=== PATIENT | male | born 1950 | race Caucasian/White ===

== ENCOUNTER 2018-08-06 10:45 | Emergency (ER) | payer OTHER ==
[~2018-08-06] VITALS: Ht 182.9 cm; Wt 115.7 kg
[2018-08-06 12:19] VITALS: BP 131/62
[2018-08-06] MEDS ORDERED: LISINOPRIL10 M1 PO (12:26)
[2018-08-06] MEDS ORDERED: METFORMIN HCL500 M3 PO (12:26)
[2018-08-06] MEDS ORDERED: ATORVASTATIN CA10 M1 PO (12:27)
[2018-08-06] MEDS ORDERED: PIOGLITAZONE HC45 M1 PO (12:27)
--- NOTE | 2018-08-06 13:04 | ED AMS/SEIZURE/WEAK/DIZZY ---
History of Present Illness General Chief Complaint: General Adult Stated Complaint: GEN WEAKNESS,HANDS TINGLING Source: patient Exam Limitations: no limitations Vital Signs & Intake/Output Vital Signs & Intake/Output Vital Signs Date Time Temp Pulse Resp B/P B/P Pulse O2 O2 Flow FiO2 Mean Ox Delivery Rate 08/06 1224 99 Room Air 08/06 1219 98.9 78 18 131/62 98 Room Air 08/06 1101 98.4 67 20 120/64 97 Room Air Allergies Coded Allergies: No Known Allergies (08/06/18) Reconcile Medications Atorvastatin Calcium 10 MG TABLET 1 TAB PO DAILY CHOLESTEROL (Reported) Lisinopril 10 MG TABLET 1 TAB PO DAILY HEART (Reported) Metformin HCl 500 MG TABLET 1 TAB PO BID DIABETES (Reported) Pioglitazone HCl 45 MG TABLET 1 TAB PO DAILY DIABETES (Reported) Triage Note: PT C/O FEELING DIZZY, TINGLING IN B/L FINGERS, NOT CONSTANT, WEAKNESS. PT DENIES CP/SOB. STATES "I FEEL LIKE I'M GOING TO PASS OUT" STATES SX STARTED A FEW HOURS AGO. NEUROS INTACT IN TRIAGE Triage Nurses Notes Reviewed? yes HPI: Patient presents for evaluation of dizziness and tingling of the fingers of both hands. Patient describes the symptoms as mild with associated dizziness and weakness that began abruptly at about 8:30 in the morning. Patient states that it began while he was sitting at the computer. He denies any associated vertigo. Likewise denies chest pain, diaphoresis and hyperventilation. He feels well currently and offers no complaint at this time. He states he did have a prior episode years ago but no etiology was determined. Past History Travel History Traveled to [place] past 21 day No Medical History Any Pertinent Medical History? see below for history Cardiovascular: hypertension, hyperlipidemia Surgical History Surgical History: non-contributory Psychosocial History Who do you live with Daughter What is your primary language Italian Tobacco Use: Current Not Daily ETOH Use: occasional use Illicit Drug Use: denies illicit drug use Family History Hx Contributory? No Review of Systems Review of Systems Constitutional: Reports: weakness. EENTM: Reports: no symptoms. Respiratory: Reports: no symptoms. Cardiovascular: Reports: no symptoms. GI: Reports: no symptoms. Genitourinary: Reports: no symptoms. Musculoskeletal: Reports: no symptoms. Skin: Reports: no symptoms. Neurological/Psychological: Reports: see HPI. Hematologic/Endocrine: Reports: no symptoms. Immunologic/Allergic: Reports: no symptoms. All Other Systems: Reviewed and Negative Physical Exam Physical Exam General Appearance: SEE BELOW Comments: Gen.: Well-nourished, well-developed, no acute respiratory distress. Head: Normocephalic, atraumatic. Eyes: Normal inspection bilaterally Ears: Normal inspection bilaterally Nose: Normal inspection Throat/mouth : Moist mucosa Neck: Supple, full range of motion, no goiter Heart: Regular rate and rhythm, no murmurs rubs or gallops Lungs: Clear to auscultation bilaterally with normal air entry Chest: Nontender Back: Normal range of motion Abdomen: Soft, nontender, nondistended, normal bowel sounds Extremities: Normal range of motion grossly, equal radial pulses, no cyanosis clubbing or edema Neurologic: Cranial nerves grossly intact, speech is clear Skin: warm and dry Psychiatric: Calm, cooperative, no apparent delusions or hallucinations Core Measures ACS in differential dx? No CVA/TIA Diagnosis No Sepsis Present: No Sepsis Focused Exam Completed? No Progress Differential Diagnosis: arrythmia, anemia, CVA/stroke, drug intoxication, electrolyte imbalance, hypoglycemia, hypoxia, ANXIETY/HYPERVENTILATION Plan of Care: Orders Procedure Date/time Status EKG 08/06 1105 Active Initial ED EKG: NSR, rate (75), pacS-CHRONIC PER PATIENT Prior EKG: changed (NO pacS ON PRIOR) Comments: Patient is without complaint at this time and feels well. He has declined additional evaluation in the emergency department. Departure Departure Disposition: HOME OR SELF CARE Condition: Stable Clinical Impression Primary Impression: Dizziness Secondary Impressions: Paresthesias Referrals: Mia DONAHUE,David Miller (PCP/Family) Additional Instructions: Please follow-up with your primary care physician for reevaluation of your symptoms. Return if any concerns or sudden worsening or repeat of your symptoms. Departure Forms: Customer Survey General Discharge Information
== END 2018-08-06 13:07 ==
LOC: ERH 10:45
DX: R42 Dizziness and giddiness (principal); R20.2 Paresthesia of skin; I10 Essential (primary) hypertension; Z72.0 Tobacco use
CPT/HCPCS: 93005; 93010